=== PATIENT | male | born 1965 | race Caucasian/White ===

== ENCOUNTER 2020-01-16 14:41 | Emergency (ER) | payer OTHER ==
--- NOTE | 2020-01-16 15:24 | EDM.PDOC ---
ED HPI GENERAL MEDICAL PROBLEM - General Chief Complaint: General Stated Complaint: NEEDS TO DETOX?? Time Seen by Provider: 01/16/20 14:51 Source of Information: Reports: Patient, Family (son) History Limitations: Reports: No Limitations - History of Present Illness INITIAL COMMENTS - FREE TEXT/NARRATIVE: Patient presents requesting alcohol treatment. He would like to get in to a long-term treatment facility for this. He has never had treatment before and says the problem with alcohol is fairly recent as he is stressed over his ' s health, being diagnosed with ALS. He says he was in detox at [facility] 6 weeks ago but for only 3 days. The last 10 days he has been drinking heavily and hasn 't been eating much. His last drink was at noon today and also had one at 0800. He denies drug use. He denies any thoughts of suicide. - Related Data Allergies Allergy/AdvReac Type Severity Reaction Status Date / Time Penicillins Allergy Cannot Verified 01/16/20 15:10 Remember Home Meds: Home Meds Sertraline HCl 100 mg PO DAILY 08/31/18 [History] ALPRAZolam [Alprazolam] 0.25 mg PO TID PRN 01/16/20 [History] Cetirizine [ZyrTEC] 10 mg PO DAILY 01/16/20 [History] Losartan Potassium 100 mg PO DAILY 01/16/20 [History] hydroCHLOROthiazide [Hydrochlorothiazide] 25 mg PO DAILY 01/16/20 [History] Past Medical History HEENT History: Reports: Impaired Vision Other HEENT History: glasses Cardiovascular History: Reports: Hypertension Social & Family History - Tobacco Use Smoking Status *Q: Former Smoker Used Tobacco, but Quit: Yes Month/Year Tobacco Last Used: 10 days ago - Caffeine Use Caffeine Use: Reports: Coffee - Alcohol Use Date of Last Drink: 01/16/20 Time of Last Drink: 12:00 - Recreational Drug Use Recreational Drug Use: No ED ROS GENERAL - Review of Systems Review Of Systems: See Below Constitutional: Reports: Decreased Appetite (eating makes him nauseated but no vomiting). Denies: Fever, Chills, Weakness HEENT: Denies: Ear Pain, Throat Pain, Vision Change Respiratory: Denies: Shortness of Breath, Cough Cardiovascular: Denies: Chest Pain, Lightheadedness, Syncope Endocrine: Reports: Fatigue GI/Abdominal: Denies: Abdominal Pain, Diarrhea, Vomiting : Denies: Dysuria Musculoskeletal: Denies: Neck Pain, Shoulder Pain, Arm Pain, Back Pain Skin: Denies: Cyanosis, Jaundice, Mottled, Pallor, Diaphoresis Neurological: Denies: Confusion, Dizziness, Headache, Seizure, Syncope, Trouble Speaking, Difficulty Walking Psychiatric: Reports: Anxiety. Denies: Agitation, Confusion ED EXAM, GENERAL - Physical Exam Exam: See Below Exam Limited By: No Limitations General Appearance: Alert, WD/WN, No Apparent Distress Eye Exam: Bilateral Eye: EOMI, Normal Inspection, PERRL Ears: Normal External Exam, Hearing Grossly Normal Nose: Normal Inspection, No Blood Throat/Mouth: Normal Inspection, Normal Lips, Normal Voice, No Airway Compromise Head: Atraumatic, Normocephalic Neck: Normal Inspection, Full Range of Motion Respiratory/Chest: No Respiratory Distress, Lungs Clear, Normal Breath Sounds, No Accessory Muscle Use Cardiovascular: Regular Rate, Rhythm, No Murmur GI/Abdominal: Normal Bowel Sounds, Soft, Non-Tender Back Exam: Normal Inspection, Full Range of Motion Extremities: Normal Inspection, Normal Range of Motion Neurological: Alert, Oriented, Normal Cognition, No Motor/Sensory Deficits Psychiatric: Normal Affect, Normal Mood Skin Exam: Warm, Dry, Intact, Normal Color, No Rash Course - Vital Signs Last Recorded V/S: Last Vital Signs Temp 99.4 F 01/16/20 14:58 Pulse 75 01/16/20 14:58 Resp 20 01/16/20 14:58 BP 168/95 H 01/16/20 14:58 Pulse Ox 94 L 01/16/20 14:58 - Orders/Labs/Meds Labs: Laboratory Tests 01/16/20 01/16/20 01/16/20 Range/Units 15:35 15:35 15:38 WBC 6.83 (5.00-10.00) 10^3/uL RBC 4.94 (4.50-6.00) 10^6/uL Hgb 16.7 (13.0-17.0) g/dL Hct 45.5 (40.0-52.0) % MCV 92.1 H (82.0-92.0) fL MCH 33.8 H (27.0-31.0) pg MCHC 36.7 H (32.0-36.0) g/dL RDW 11.5 (11.5-14.5) % Plt Count 203 D (150-400) 10^3/uL MPV 9.2 (7.4-10.4) fL Immature Gran % (Auto) 0.6 (0.0-5.0) % Neut % (Auto) 70.7 H (50.0-70.0) % Lymph % (Auto) 20.1 (20.0-40.0) % Ray % (Auto) 7.8 (2.0-8.0) % Eos % (Auto) 0.4 L (1.0-3.0) % Baso % (Auto) 0.4 (0.0-1.0) % Immature Gran # (Auto) 0.04 (0.00-0.50) 10^3/uL Neut # (Auto) 4.83 (2.50-7.00) 10^3/uL Lymph # (Auto) 1.37 (1.00-4.00) 10^3/uL Ray # (Auto) 0.53 (0.10-0.80) 10^3/uL Eos # (Auto) 0.03 L (0.10-0.30) 10^3/uL Baso # (Auto) 0.03 (0.00-0.10) 10^3/uL Sodium (136-145) mmol/L Potassium (3.3-5.3) mmol/L Chloride (98-115) mmol/L Carbon Dioxide (21.0-32.0) mmol/L Anion Gap (5-15) mmol/L BUN (6-25) mg/dL Creatinine (0.51-1.17) mg/dL Est Cr Clr Drug Dosing mL/min Estimated GFR (MDRD) mL/min Glucose (75 - 99) mg/dL Calcium (8.7-10.3) mg/dL Total Bilirubin (0.2-1.0) mg/dL AST (15-37) U/L ALT (12-78) U/L Alkaline Phosphatase (46-116) IU/L Total Protein (6.4-8.2) g/dL Albumin (3.00-4.80) g/dL Specimen Type Urincc Urine Color Yellow (YELLOW) Urine Appearance Slightly cloudy H (CLEAR) Urine pH 5.5 (5.0-9.0) Ur Specific Creede >= 1.030 (1.005-1.030) Urine Protein 30 H (NEGATIVE) mg/dL Urine Glucose (UA) Negative (NEGATIVE) mg/dL Urine Ketones >=160 H (NEGATIVE) mg/dL Urine Occult Blood Small H (NEGATIVE) Urine Nitrite Negative (NEGATIVE) Urine Bilirubin Small H (NEGATIVE) Urine Urobilinogen 1.0 (0.2-1.0) E.U./dL Ur Leukocyte Esterase Negative (NEGATIVE) U Hyaline Cast (Auto) Few Urine RBC 0-5 (0-5) /HPF Urine WBC 0-5 (0-5) /HPF Ur Epithelial Cells Few /LPF Urine Bacteria Few (NONE TO FEW) /HPF Urine Opiates Screen Negative (NEGATIVE) Ur Oxycodone Screen Negative (NEGATIVE) Urine Methadone Screen Negative (NEGATIVE) Ur Propoxyphene Screen Negative (NEGATIVE) Ur Barbiturates Screen Negative (NEGATIVE) Ur Tricyclics Screen Negative (NEGATIVE) Ur Phencyclidine Scrn Negative (NEGATIVE) Ur Amphetamine Screen Negative (NEGATIVE) U Methamphetamines Scrn Negative (NEGATIVE) U Benzodiazepines Scrn Positive H (NEGATIVE) U Cocaine Metab Screen Negative (NEGATIVE) U Marijuana (THC) Screen Negative (NEGATIVE) Ethyl Alcohol (NONE DETECTED) mg/dL 01/16/20 Range/Units 15:38 WBC (5.00-10.00) 10^3/uL RBC (4.50-6.00) 10^6/uL Hgb (13.0-17.0) g/dL Hct (40.0-52.0) % MCV (82.0-92.0) fL MCH (27.0-31.0) pg MCHC (32.0-36.0) g/dL RDW (11.5-14.5) % Plt Count (150-400) 10^3/uL MPV (7.4-10.4) fL Immature Gran % (Auto) (0.0-5.0) % Neut % (Auto) (50.0-70.0) % Lymph % (Auto) (20.0-40.0) % Ray % (Auto) (2.0-8.0) % Eos % (Auto) (1.0-3.0) % Baso % (Auto) (0.0-1.0) % Immature Gran # (Auto) (0.00-0.50) 10^3/uL Neut # (Auto) (2.50-7.00) 10^3/uL Lymph # (Auto) (1.00-4.00) 10^3/uL Ray # (Auto) (0.10-0.80) 10^3/uL Eos # (Auto) (0.10-0.30) 10^3/uL Baso # (Auto) (0.00-0.10) 10^3/uL Sodium 137 (136-145) mmol/L Potassium 4.6 (3.3-5.3) mmol/L Chloride 94 L (98-115) mmol/L Carbon Dioxide 20.2 L (21.0-32.0) mmol/L Anion Gap 27.4 H (5-15) mmol/L BUN 13 (6-25) mg/dL Creatinine 0.73 (0.51-1.17) mg/dL Est Cr Clr Drug Dosing 126.97 mL/min Estimated GFR (MDRD) > 60 mL/min Glucose 76 (75 - 99) mg/dL Calcium 8.5 L (8.7-10.3) mg/dL Total Bilirubin 1.4 H (0.2-1.0) mg/dL AST 194 H (15-37) U/L ALT 216 H (12-78) U/L Alkaline Phosphatase 64 (46-116) IU/L Total Protein 7.5 (6.4-8.2) g/dL Albumin 3.94 (3.00-4.80) g/dL Specimen Type Urine Color (YELLOW) Urine Appearance (CLEAR) Urine pH (5.0-9.0) Ur Specific Creede (1.005-1.030) Urine Protein (NEGATIVE) mg/dL Urine Glucose (UA) (NEGATIVE) mg/dL Urine Ketones (NEGATIVE) mg/dL Urine Occult Blood (NEGATIVE) Urine Nitrite (NEGATIVE) Urine Bilirubin (NEGATIVE) Urine Urobilinogen (0.2-1.0) E.U./dL Ur Leukocyte Esterase (NEGATIVE) U Hyaline Cast (Auto) Urine RBC (0-5) /HPF Urine WBC (0-5) /HPF Ur Epithelial Cells /LPF Urine Bacteria (NONE TO FEW) /HPF Urine Opiates Screen (NEGATIVE) Ur Oxycodone Screen (NEGATIVE) Urine Methadone Screen (NEGATIVE) Ur Propoxyphene Screen (NEGATIVE) Ur Barbiturates Screen (NEGATIVE) Ur Tricyclics Screen (NEGATIVE) Ur Phencyclidine Scrn (NEGATIVE) Ur Amphetamine Screen (NEGATIVE) U Methamphetamines Scrn (NEGATIVE) U Benzodiazepines Scrn (NEGATIVE) U Cocaine Metab Screen (NEGATIVE) U Marijuana (THC) Screen (NEGATIVE) Ethyl Alcohol 209 H* (NONE DETECTED) mg/dL - Re-Assessments/Exams Free Text/Narrative Re-Assessment/Exam: 01/16/20 16:32 Etoh is 209 and UDS is positive for benzodiazepines but clear otherwise. CBC and CMP good with some elevation of AST and ALT. I talked with [facility] who can do detox but not [facility] treatment. I talked with [facility] who can only take patients that are suicidal or homicidal. I talked with [facility] in [place] who may be able to take him if they have room. They will call me back shortly. 01/16/20 16:58 [facility] called back saying they decided to decline since his insurance may not work as a [place] resident for long-term treatment, and the last time he was there for detox it went very well so they don't know if he actually will need detox. 01/16/20 17:19 [facility] will accept for detox treatment and help facilitate long-term alcohol treatment if needed. Dr. Evans accepted. Discussed findings and plan with patient who agrees. His son will drive him up there now. Stable at discharge. Departure - Departure Time of Disposition: 17:21 Disposition: DC/Tfer to Acute Hospital 02 Condition: Good Clinical Impression: Admitted to alcohol detoxification center Alcohol intoxication Qualifiers: Complication of substance-induced condition: uncomplicated Qualified Code(s): F10.920 - Alcohol use, unspecified with intoxication, uncomplicated - Discharge Information Referrals: Jessica Jiang PA-C [Primary Care Provider] - Forms: ED Department Discharge Sepsis Event Note - Evaluation Sepsis Screening Result: No Definite Risk - Focused Exam Vital Signs: Vital Signs Temp Pulse Resp BP Pulse Ox 01/16/20 14:58 99.4 F 75 20 168/95 H 94 L Date Exam was Performed: 01/16/20 Time Exam was Performed: 16:21
[2020-01-16 16:06] LABS: BARBITURATE SCREEN,URINE NEGATIVE (NEGATIVE); BENZODIAZEPINES SCREEN,URINE POSITIVE (NEGATIVE); TCA SCREEN,URINE NEGATIVE (NEGATIVE); THC SCREEN,URINE 50 NG/ML NEGATIVE (NEGATIVE)
[2020-01-16 16:10] LABS: ANION GAP 27.4 mmol/L (5-15); CHLORIDE,CL 94 mmol/L (98-115); SODIUM,NA 137 mmol/L (136-145)
== END 2020-01-16 17:30 ==
LOC: KA.ED 14:41
DX: F10.120 Alcohol abuse with intoxication, uncomplicated (principal); Y90.7 Blood alcohol level of 200-239 mg/100 ml; I10 Essential (primary) hypertension; Z87.891 Personal history of nicotine dependence; Z79.899 Other long term (current) drug therapy; Z88.0 Allergy status to penicillin
CPT/HCPCS: 36415; 80053; 80305-QW; 80307; 81001; 85025; 99284

== ENCOUNTER 2020-02-03 13:25 | Emergency (ER) | payer OTHER ==
--- NOTE | 2020-02-03 14:22 | EDM.PDOCBH ---
ED HPI GENERAL MEDICAL PROBLEM - General Stated Complaint: DEPRESSION,ANXIETY,ALCOHOLISM Time Seen by Provider: 02/03/20 14:04 Source of Information: Reports: Patient, Family (son) History Limitations: Reports: No Limitations - History of Present Illness INITIAL COMMENTS - FREE TEXT/NARRATIVE: Patient presents with request to get long-term treatment for alcohol addiction and depression. He denies any thoughts or plan of suicide. He is not aggressive or homicidal. He was here two weeks ago with intoxication and then spent 3 days in detox but no longer treatment options were discussed at that time, although patient had wanted to get something shelter set up. Following detox he stayed away from alcohol for a week but has been drinking again, just not real heavy. Last drink was 14 hours ago and he doesn't appear intoxicated at this time. He is taking care of his who has ALS and has already outlived her expected years with it. She is almost to the point that he can't take care of her and this is affecting his depression quite a bit. - Related Data Allergies Allergy/AdvReac Type Severity Reaction Status Date / Time Penicillins Allergy Cannot Verified 01/16/20 15:10 Remember Home Meds: Home Meds Sertraline HCl 100 mg PO DAILY 08/31/18 [History] ALPRAZolam [Alprazolam] 0.25 mg PO TID PRN 01/16/20 [History] Cetirizine [ZyrTEC] 10 mg PO DAILY 01/16/20 [History] Losartan Potassium 100 mg PO DAILY 01/16/20 [History] hydroCHLOROthiazide [Hydrochlorothiazide] 25 mg PO DAILY 01/16/20 [History] Past Medical History HEENT History: Reports: Impaired Vision Other HEENT History: glasses Cardiovascular History: Reports: Hypertension Gastrointestinal History: Reports: None Genitourinary History: Reports: None Musculoskeletal History: Reports: Back Pain, Chronic, Fracture Neurological History: Reports: Concussion, Head Trauma Psychiatric History: Reports: Addiction, Anxiety, Depression, Panic Attack Endocrine/Metabolic History: Reports: None Hematologic History: Reports: None Immunologic History: Reports: None Dermatologic History: Reports: None - Infectious Disease History Infectious Disease History: Reports: Chicken Pox, Shingles - Past Surgical History HEENT Surgical History: Reports: Adenoidectomy, Tonsillectomy Cardiovascular Surgical History: Reports: None GI Surgical History: Reports: None Male Surgical History: Reports: None Endocrine Surgical History: Reports: None Neurological Surgical History: Reports: None Musculoskeletal Surgical History: Reports: None Dermatological Surgical History: Reports: None Social & Family History - Family History Family Medical History: Noncontributory - Caffeine Use Caffeine Use: Reports: Coffee ED ROS GENERAL - Review of Systems Review Of Systems: Comprehensive ROS is negative, except as noted in HPI. ED EXAM, BEHAVIORAL HEALTH - Physical Exam Exam: See Below Exam Limited By: No Limitations General Appearance: Alert, WD/WN, No Apparent Distress Eye Exam: Bilateral Eye: EOMI, Normal Inspection, PERRL Ears: Normal External Exam, Hearing Grossly Normal Nose: Normal Inspection, No Blood Throat/Mouth: Normal Inspection, Normal Lips, Normal Voice, No Airway Compromise Head: Atraumatic, Normocephalic Neck: Normal Inspection, Full Range of Motion Respiratory/Chest: No Respiratory Distress, Lungs Clear, Normal Breath Sounds, No Accessory Muscle Use Cardiovascular: Regular Rate, Rhythm, No Murmur GI/Abdominal: Normal Bowel Sounds, Soft Back Exam: Normal Inspection, Full Range of Motion Extremities: Normal Inspection, Normal Range of Motion Neurological: Alert, Normal Mood/Affect, Normal Cognition, Normal Gait, No Motor /Sensory Deficits, Oriented x 3 Psychiatric: Alert, Normal Affect, Normal Cognition, Normal Mood, Oriented Skin Exam: Warm, Dry, Intact, Normal color, No rash COURSE, BEHAVIORAL HEALTH COMP - Course Re-Assessment/Re-Exam: Patient is stable and doesn't appear intoxicated. I discussed case with Donald , ad operations specialist, at [facility]. He then talked directly with the patient and made plans to have a conference call at 8:00 this evening to discuss details of long-term treatment for his depression and alcohol addiction. The patient is comfortable with this plan and ready to get help. He is discharged to home in stable condition. Departure - Departure Time of Disposition: 15:05 Disposition: Home, Self-Care 01 Condition: Good Clinical Impression: Alcohol addiction Qualifiers: Substance use status: unspecified alcohol-induced disorder Qualified Code(s): F10.29 - Alcohol dependence with unspecified alcohol-induced disorder Depression Qualifiers: Depression Type: unspecified Qualified Code(s): F32.9 - Major depressive disorder, single episode, unspecified - Discharge Information Instructions: Living With Depression, What You Need to Know About Alcohol Abuse and Dependence, Adult Referrals: Jessica Jiang PA-C [Primary Care Provider] - Additional Instructions: 1. Drink 8 cups of water daily. 2. Follow the plan that will be developed during the conference call this evening with [facility] regarding treatment.
== END 2020-02-03 15:20 | disposition home or self-care (01) ==
LOC: KA.ED 13:25
DX: F10.29 Alcohol dependence with unspecified alcohol-induced disorder (principal); F32.9 Major depressive disorder, single episode, unspecified; I10 Essential (primary) hypertension; Z88.0 Allergy status to penicillin; Z79.899 Other long term (current) drug therapy
CPT/HCPCS: 99283

== ENCOUNTER 2025-02-27 07:59 | Emergency (ER) | payer BC ==
[2025-02-27] MEDS: Lidocaine/Epineph/Tetracaine 3 ML Syringe TOP ONE (08:06)
[2025-02-27] MEDS: Lidocaine/Epineph/Tetracaine 3 ML Syringe ONE (08:25)
[2025-02-27] MEDS: Bacitracin/Neomycin/Polymyxin B Oint 0.9 GM U/D Packet TOP ONE (08:45)
[2025-02-27] MEDS: Bacitracin/Neomycin/Polymyxin B Oint 0.9 GM U/D Packet ONE (09:11)
[2025-02-27 09:12] VITALS: BP 128/76; PULSE 80
== END 2025-02-27 09:00 | disposition home or self-care (01) ==
LOC: KA.ED 07:59
DX: S01.411A Laceration without foreign body of right cheek and temporomandibular area, initial encounter (principal); S01.111A Laceration without foreign body of right eyelid and periocular area, initial encounter; I10 Essential (primary) hypertension; Z88.0 Allergy status to penicillin; Z79.899 Other long term (current) drug therapy; W01.198A Fall on same level from slipping, tripping and stumbling with subsequent striking against other object, initial encounter; Y93.89 Activity, other specified
CPT/HCPCS: 12013; 99283; 99284; A9270-GY